=== PATIENT | female | born 1945 | race Caucasian/White ===

== ENCOUNTER 2021-05-17 19:47 | Emergency (ER) | payer MEDICARE, OTHER ==
[2021-05-17] MEDS ORDERED: Boostrix 0.5 ML (Tdap) VIAL ONE (21:07)
[2021-05-17] MEDS ORDERED: Bupivacaine PF 0.5% 30 ML VIAL ONE (21:30)
== END 2021-05-17 21:44 | disposition home or self-care (01) ==
LOC: CSHERS 19:47
DX: S81.812A Laceration without foreign body, left lower leg, initial encounter (principal); I48.91 Unspecified atrial fibrillation; E11.9 Type 2 diabetes mellitus without complications; E78.5 Hyperlipidemia, unspecified; E78.00 Pure hypercholesterolemia, unspecified; I10 Essential (primary) hypertension; W55.32XA Struck by other hoof stock, initial encounter
CPT/HCPCS: 12001; 90471; 90715; S0020

== ENCOUNTER 2024-03-28 12:31 | Outpatient (CLI) | payer MEDICARE, OTHER | END 2024-03-28 12:32 | disposition home or self-care (01) | LOC: CSHULT 12:31 | PROVIDERS: ATTEND Internal Medicine Critical Care Medicine | DX: I26.94 Multiple subsegmental thrombotic pulmonary emboli without acute cor pulmonale (principal); I82.401 Acute embolism and thrombosis of unspecified deep veins of right lower extremity; I70.0 Atherosclerosis of aorta | CPT/HCPCS: 93306 ==